=== PATIENT | male | born 1985 | race Caucasian/White ===

== ENCOUNTER 2017-07-29 14:09 | Day surgery (SDC) | payer OTHER ==
[~2017-07-29] VITALS: Ht 175.3 cm; Wt 59.9 kg
[~2017-07-29 14:09] MED LIST: ALBU90OI INH; AMOCLA875 PO; BENZ100A PO; BUDE6HFA; BUSP15 PO; CLIN300 PO; HYDACE5 PO; METR500 PO; MONDOXYNE NL100 MG PO; Monodox100 MG PO; OXYACE5T PO; PRED10 PO; PROACE100 PO; Percocet 5-3251 EACH PO; Prednisone20 MG PO; RXOXYACE PO; RXPROACE PO; SPACE CHAMBER1 EACH MC; SULTRIDS PO; TRAM50 PO; VENL150ER PO; [UNRECOGNIZED DRUG - REMARK]
[2017-07-29] MEDS ORDERED: BUDE6HFA (14:56)
[2017-07-29] MEDS ORDERED: ALBU90OI (14:57)
== END 2017-07-29 18:51 | disposition home or self-care (01) ==
LOC: ORSCSDS 14:09
PROVIDERS: Orthopaedic Surgery
PROC: 0PSP04Z Reposition Right Metacarpal with Internal Fixation Device, Open Approach (ICD-10-PCS; principal; 2017-07-29 15:30)
DX: S62.322A Displaced fracture of shaft of third metacarpal bone, right hand, initial encounter for closed fracture (principal); J45.909 Unspecified asthma, uncomplicated; F17.220 Nicotine dependence, chewing tobacco, uncomplicated; Z79.899 Other long term (current) drug therapy
CPT/HCPCS: C1713; J0171; J0690; J2250; J2405; J3010; J7120

== ENCOUNTER 2017-08-12 18:41 | Emergency (ER) | payer OTHER ==
[~2017-08-12] VITALS: Ht 175.3 cm; Wt 61.2 kg
[~2017-08-12 18:41] MED LIST changes: +ALBU90OI
== END 2017-08-12 20:43 | disposition home or self-care (01) ==
LOC: ER 18:41
DX: S69.91XA Unspecified injury of right wrist, hand and finger(s), initial encounter (principal); F32.9 Major depressive disorder, single episode, unspecified; J44.9 Chronic obstructive pulmonary disease, unspecified; F17.200 Nicotine dependence, unspecified, uncomplicated; Z88.0 Allergy status to penicillin; Z88.5 Allergy status to narcotic agent; Z88.8 Allergy status to other drugs, medicaments and biological substances; Z88.2 Allergy status to sulfonamides; Z88.1 Allergy status to other antibiotic agents; Z86.14 Personal history of Methicillin resistant Staphylococcus aureus infection; Z91.02 Food additives allergy status; X58.XXXA Exposure to other specified factors, initial encounter
CPT/HCPCS: 29125; 73130; 99283

== ENCOUNTER 2022-02-12 15:22 | Emergency (ER) | payer SELFPAY ==
[~2022-02-12] VITALS: Ht 177.8 cm; Wt 63.5 kg
[2022-02-12] MEDS ORDERED: OCUFLOX5 M9 RIGHTEAR (15:40)
== END 2022-02-12 15:43 | disposition home or self-care (01) ==
LOC: ER 15:22
DX: H60.91 Unspecified otitis externa, right ear (principal); H61.21 Impacted cerumen, right ear; F17.200 Nicotine dependence, unspecified, uncomplicated; F32.A Depression, unspecified; J44.9 Chronic obstructive pulmonary disease, unspecified; Z88.1 Allergy status to other antibiotic agents; Z88.5 Allergy status to narcotic agent; Z88.0 Allergy status to penicillin; Z88.2 Allergy status to sulfonamides; Z88.8 Allergy status to other drugs, medicaments and biological substances; Z91.09 Other allergy status, other than to drugs and biological substances
CPT/HCPCS: 99282